=== PATIENT | female | born 1960 | race Hispanic/Latino ===

== ENCOUNTER 2017-10-12 00:55 | Emergency (ER) | payer BC ==
[~2017-10-12] VITALS: Ht 152.4 cm; Wt 89.4 kg
[~2017-10-12 00:55] MED LIST: ALL DAY10 MG PO; ATIVAN0.5 MG OR; BACTRIM DS1 TAB OR; CITALOPRAM HYDR20 MG OR; CLARITIN10 M1 PO; FLONASE NASAL50 MCG; GLIPIZIDE10 MG PO; KEFLEX500 M1 PO; KEFLEX500 MG PO; LEVOTHYROXIN100 MC1 PO; LEVOTHYROXIN125 MCG OR; LEVOTHYROXIN150 MCG PO; LORTAB 5 OR; LORTAB 5 PO; METFORMIN500 MG PO; ROBITUSSIN AC10 ML PO
[2017-10-12] MEDS ORDERED: FLOXIN OTIC0.3 % AD (01:23)
[2017-10-12] MEDS ORDERED: PERCOCET 5/325M1 TAB PO (01:23)
[2017-10-12] MEDS ORDERED: AMOXICILLIN875 MG PO (01:23)
[2017-10-12 01:45] VITALS: BP 183/99
== END 2017-10-12 01:45 | disposition home or self-care (01) | DRG 153 ==
LOC: ED 00:55
DX: H66.91 Otitis media, unspecified, right ear (principal); H92.03 Otalgia, bilateral